=== PATIENT | male | born 1980 | race Caucasian/White ===

== ENCOUNTER 2016-12-13 14:09 | Inpatient (IN) | payer SELFPAY ==
[~2016-12-13] VITALS: Ht 182.9 cm; Wt 67.1 kg
[~2016-12-13 14:09] MED LIST: PROM12.56
[2016-12-13 20:00] VITALS: BP 102/55
[2016-12-13 23:00] VITALS: BP 105/58
[2016-12-13] MEDS ORDERED: ONDANSETRON PF 4 MG/2 ML VIAL. IV PRN (23:00)
[2016-12-13] MEDS ORDERED: KETOROLAC TROMETHAMINE 30 MG/ML INJ. IV PRN (23:00)
[2016-12-13] MEDS ORDERED: fentaNYL PF VIAL 100 MCG/2 ML VIAL IV PRN (23:00)
[2016-12-13] MEDS ORDERED: diphenhydrAMINE 50 MG/ML VIAL IVP PRN (23:00)
[2016-12-14 04:33] LABS: BASO # 0.1 x10^3/uL (0.0-0.2); BASO % 1 % (0-3); EOS % 1 % (0-3); HEMATOCRIT 38.5 % (39.0-53.0); HEMOGLOBIN 13.5 g/dL (13.0-17.5); LYMPH # 2.6 x10^3/uL (1.0-4.8); LYMPH % 27 % (24-48); MEAN CORPUSCULAR HEMOGLOBIN 32 pg (25-35); MEAN CORPUSCULAR HGB CONC 35 g/dL (31-37); MEAN CORPUSCULAR VOLUME 91 fL (79-100); MONO % 8 % (0-9); NEUT % 64 % (31-73); PLATELET COUNT 176 x10^3/uL (140-400); RED BLOOD COUNT 4.24 x10^6/uL (4.30-5.70); WHITE BLOOD COUNT 9.8 x10^3/uL (4.0-11.0)
[2016-12-14 05:34] LABS: ALBUMIN 3.5 g/dL (3.4-5.0); ALBUMIN/GLOBULIN RATIO 1.5 (1.0-1.7); CALCIUM 8.6 mg/dL (8.5-10.1); CREATININE 0.9 mg/dL (0.7-1.3); GFR 94.4; TOTAL BILIRUBIN 0.8 mg/dL (0.2-1.0); TOTAL PROTEIN 5.9 g/dL (6.4-8.2)
[2016-12-14 05:51] LABS: POTASSIUM 2.8 mmol/L (3.5-5.1)
[2016-12-14] MEDS: METRONIDAZOLE 500mg PREMIX 100 ML IV SCH ×2 (06:35→20:20)
[2016-12-14] MEDS: POTASSIUM CL 40MEQ D5-0.45NACL 1,000 ML IV SCH ×2 (06:46→16:30)
[2016-12-14] MEDS: POTASSIUM CHLORIDE 10MEQ 100 ML IV SCH ×4 (06:47→16:21)
[2016-12-14 07:00] VITALS: BP 128/78
[2016-12-14] MEDS ORDERED: MULTIVIT INFUSN,ADULT 4,VIT K 10 ML, FOLIC ACID 1 MG, THIAMINE 100 MG in IV NORMAL SALI... IV SCH (09:00)
[2016-12-14] MEDS: PANTOPRAZOLE IV PUSH 40 MG VIAL. IVP SCH (09:35)
--- NOTE | 2016-12-14 09:48 | PDOC2 ---
GI CONSULT Reason For Consult: N/v, colitis HPI: HPI: 36 y/o male previously evaluated by Dr. Blackwell in 12/2015 for n/v w/ daily marijuana use. At that time, long trial of PPI QD and avoidance of marijuana for ~6 months was advised w/ consideration for intracranial imaging and GES. ( Also discussed L-carnitine + CoQ10 + Elavil.) Has not followed any recommendations. On this occasion, transferred from [facility] w/ n/v, abd pain, runny stools, and "colitis" (CT w/ IV contrast reports suggests possibility of mild colon wall thickening), says other doctors are requesting colonoscopy. Since we saw him, symptoms have recurred about every 2 months w/o precipitating events. Reports another CT at [facility] in 09/2016 also showed "colitis." Has had EGD ( also at [place] in 09/2016), results unclear, says a biopsy was taken. Current episode began last w/ a slight change in bowel habits "like pooping through a straw" and diffuse abd pain. N/v began on Monday. Currently is still vomiting (randomly, awoke at 5:00 a.m. w/ emesis) and having runny stools (says has had 4 since arrived at [facility]). Pain improved. Labs w/ hypokalemia. Denies bleeding, weight loss, reflux/heartburn. On IV PPI, metronidazole, and Rocephin. PMH: PMH: chronic n/v, Lyme disease FH: Family History: No pertinent hx Social History: Smoke: No ALCOHOL: none Drugs: Marijuana (daily >20 years) ROS: GEN: Denies fevers, chills, sweats HEENT: Denies blurred vision, sore throat CV: Denies chest pain RESP: Denies shortness of air, cough GI: Per HPI : Denies hematuria, dysuria ENDO: Denies weight changes NEURO: Denies confusion, dizziness MSK: Denies weakness, joint pain/swelling SKIN: Denies jaundice, pruritus VItals: Vitals: Vital Signs Date Time Temp Pulse Resp B/P Pulse Ox O2 Delivery O2 Flow Rate FiO2 12/14/16 07:00 98.6 74 20 128/78 99 Room Air 98.6 Labs: Labs: Laboratory Tests Test 12/14/16 03:55 White Blood Count 9.8x10^3/uL (4.0-11.0) Red Blood Count 4.24x10^6/uL (4.30-5.70) Hemoglobin 13.5g/dL (13.0-17.5) Hematocrit 38.5% (39.0-53.0) Mean Corpuscular Volume 91fL (79-100) Mean Corpuscular Hemoglobin 32pg (25-35) Mean Corpuscular Hemoglobin Concent 35g/dL (31-37) Red Cell Distribution Width 13.0% (11.5-14.5) Platelet Count 176x10^3/uL (140-400) Neutrophils (%) (Auto) 64% (31-73) Lymphocytes (%) (Auto) 27% (24-48) Monocytes (%) (Auto) 8% (0-9) Eosinophils (%) (Auto) 1% (0-3) Basophils (%) (Auto) 1% (0-3) Neutrophils # (Auto) 6.3x10^3uL (1.8-7.7) Lymphocytes # (Auto) 2.6x10^3/uL (1.0-4.8) Monocytes # (Auto) 0.7x10^3/uL (0.0-1.1) Eosinophils # (Auto) 0.1x10^3/uL (0.0-0.7) Basophils # (Auto) 0.1x10^3/uL (0.0-0.2) Sodium Level 142mmol/L (136-145) Potassium Level 2.8mmol/L (3.5-5.1) Chloride Level 104mmol/L (98-107) Carbon Dioxide Level 29mmol/L (21-32) Anion Gap 9 (6-14) Blood Urea Nitrogen 6mg/dL (8-26) Creatinine 0.9mg/dL (0.7-1.3) Estimated GFR (Cockcroft-Gault) 94.4 BUN/Creatinine Ratio 7 (6-20) Glucose Level 90mg/dL (70-99) Calcium Level 8.6mg/dL (8.5-10.1) Total Bilirubin 0.8mg/dL (0.2-1.0) Aspartate Amino Transf (AST/SGOT) 20U/L (15-37) Alanine Aminotransferase (ALT/SGPT) 18U/L (16-63) Alkaline Phosphatase 50U/L (46-116) Total Protein 5.9g/dL (6.4-8.2) Albumin 3.5g/dL (3.4-5.0) Albumin/Globulin Ratio 1.5 (1.0-1.7) Allergies: Coded Allergies: No Known Drug Allergies (Unverified , 01/01/16) Medications: Current Medications Medications (Trade) Dose Ordered Sig/Jagjit Route PRN Reason Start Time Stop Time Status Last Admin Dose Admin Ceftriaxone Sodium 1 gm/ Sodium Chloride 50 ml @ 100 mls/hr Q24H IV 12/13/16 23:00 12/14/16 00:13 Metronidazole (FLAGYL 500Mmg PREMIX) 100 ml @ 100 mls/hr Q8HRS IV 12/14/16 06:00 12/14/16 06:35 Ondansetron HCl 4 mg 4 mg PRN Q6HRS PRN IV NAUSEA/VOMITING 12/13/16 23:00 12/14/16 05:14 Potassium Chloride/Dextrose/ Sod Cl 1,000 ml @ 100 mls/hr Q10H IV 12/14/16 06:30 12/14/16 06:46 Potassium Chloride (KCl Premix 10meq) 100 ml @ 100 mls/hr Q1H IV 12/14/16 06:30 12/14/16 10:29 12/14/16 08:10 Imaging: Imaging: Reviewed CT report from [facility]. PE: GEN: NAD HEENT: Atraumatic, PERRL LUNGS: CTAB HEART: RRR ABD: NABS, S/ND/NT EXTREMITY: No edema SKIN: No rashes, no jaundice NEURO/PSYCH: A & O 3 A/P: A/P: Recurrent n/v w/ marijuana use ->5 year history, occurring more frequently, no precipitating events -reports recent EGD, unclear results Abd pain - resolved Loose stools w/ ?abnormal CT A/P -reports suggests possible "mild colon wall thickening" -no previous colonoscopy, requesting this now -- Tox screen ordered. ?need for atbx/inpt colonoscopy - will review CT w/ Dr. Blackwell Agree w/ PPI. ?cannabis hyperemesis ?gastroparesis Other per Dr. Blackwell. ANALILIA JUAREZ Dec 14, 2016 09:48
--- NOTE | 2016-12-14 10:46 | ACF ---
Admit Criteria Forms Admit Criteria Forms Admit Criteria Forms VOMITING Clinical Indications for Admission to Inpatient Care ( Place 'X' for any and all applicable criteria): Admission is indicated for 1 or more of the following(1)(2)(3): [ ]I. Complete or partial gastrointestinal obstruction [ ]II. Vomiting due to significant metabolic derangement (eg, severe hypercalcemia, diabetic ketoacidosis) [ ]III. Other cause of vomiting requiring hospitalization (eg, poisoning, increased intracranial pressure) [ ]IV. Inpatient admission required rather than observation care because of 1 or more of the following [ ]i) Hemodynamic instability [ ]ii) Vomiting that is severe or persistent indicated by 1 or more of the following 1) Numerous episodes of vomiting in past 24hours (eg, every 1 to 2 hours) 2) Suggests severe underlying cause or complication (eg , projectile, feculent, bilious, coffee ground, bloody) 3) Appropriate antiemetic treatment (eg, repeated oral or parenteral dosing) does not sufficiently reduce vomiting within 12 to 24 hours of treatment 4) Treatment regimen necessary to adequately control vomiting requires inpatient level of care (eg, not immediately available in outpatient setting) [ ]iii) Severe electrolyte abnormalities requiring inpatient care [ ]iv) Severe pain requiring acute inpatient management( Continuous or frequent (eg, every 2 to 4 hours) parental analgesics or analgesic regimen that can only be performed or initiated in inpatient setting) [ ]v) High fever or infection requiring inpatient admission as indicated by 1 or more of the following(7)(8): [ ]1) Appropriate outpatient or observation care antimicrobial treatment unavailable, not effective, or not feasible [ ]2) Documented bacteremia [ ]3) Temp >104.9 degrees F (40.5 degrees C) (oral) [ ]4) Temp >103.1 degrees F (39.5 C) (oral) or <96.8 degrees F (36 C) (rectal) that does not respond to all emergency treatment measures [ ]vi) Acute renal failure [ ]vii) IV fluid required rather than oral rehydration to replace significant on going losses (greater than 3 L/m2 per day) [ ]viii) Parenteral nutrition regimen that must be implemented on inpatient basis [ ]ix) Other condition, treatment or monitoring requiring inpatient admission Extended stay beyond goal length of stay may be needed for(1)(4): [ ]a) Severe vomiting [ ]b) Persistent vomiting, vital sign changes, severe electrolyte imbalance , or diagnosed cause of vomiting that requires continued hospitalization (eg, gastrointestinal obstruction , increased intracranial pressure) [ ]c) Surgery to treat identified causes of vomiting (eg, bowel obstruction , intracranial process) [ ]d) Comorbid illness that requires inpatient care (eg, acute heart failure , renal failure) [ ]e) Need for inpatient endoscopy The original [employer] content created by [employer] has been revised. The portions of the content which have been revised are identified through the use of italic text or in bold, and [employer] [employer] has neither reviewed nor approved the modified material. All other unmodified content is copyright [employer]. Please see references footnoted in the original [employer] edition 2016 JOVANNA CHAN Dec 14, 2016 10:46
[2016-12-14 11:00] VITALS: BP 131/85
[2016-12-14 12:00] LABS: BARBITURATES NEG (NEG); BENZODIAZEPINES NEG (NEG); CANNABINOIDS POS (NEG); COCAINE NEG (NEG); METHADONE NEG (NEG); OPIATES NEG (NEG); PHENCYCLIDINE NEG (NEG)
--- NOTE | 2016-12-14 12:15 | HP ---
ADMIT DATE: 12/14/2016 HISTORY OF PRESENT ILLNESS: The patient is a 36-year-old male patient who was admitted originally to [facility], and was transferred yesterday as he continued to have recurrent bouts of nausea, vomiting and also diarrhea and the CT scan suggested he might have colitis. He has multiple admissions for the same complaints to [facility], [facility] as well as [facility]. PAST MEDICAL HISTORY: Significant for cyclic vomiting. PAST SURGICAL HISTORY: Unremarkable. FAMILY HISTORY: Unremarkable and not related to his complaints. SOCIAL HISTORY: He is single. He apparently does not smoke or drink alcohol; however, he uses marijuana for the last 20 years. MEDICATIONS: He was transferred to this hospital to continue on diphenhydramine 50 mg IV every 6 hours, fentanyl citrate 50 mcg IV every 3-4 hour, Toradol 30 mg IV as needed for 6 hours, Flagyl 500 mg IV q. 8 hourly, and Protonix 40 mg twice a day as well as potassium chloride. PHYSICAL EXAMINATION: GENERAL: On examining him, he actually looked well and was clearly in no apparent respiratory distress. No pallor, jaundice, cyanosis, or thyromegaly. No jugular venous distention. No limb edema. VITAL SIGNS: His heart rate was 74, blood pressure was 128/78, temperature was 98.6, respiratory rate was 20, and oxygen saturation was 99%. HEAD, EYES, EARS, NOSE, AND THROAT: Showed normocephalic, atraumatic. NECK: Supple. HEART: Showed normal first and second heart sounds with no gallop, rub, or murmur. CHEST: Clear to auscultation. No crepitation or rhonchi. ABDOMEN: Distended, soft, nontender. No guarding or rigidity. No organomegaly. All hernial orifices intact. Bowel sounds normal. NEUROLOGIC: He is awake, alert, responding appropriately. Cranial nerves are intact. EXTREMITIES: He moves extremities without difficulty, ambulates without assistance or assistive devices. LABORATORY DATA: His lab work this morning showed a white cell count 9,800, hemoglobin 13.5, hematocrit 38.5, MCV 91, and platelet count of 176,000. Serum sodium was 142, potassium 2.8, chloride 104, bicarbonate 29, anion gap of 9, BUN 6, creatinine 0.9, estimated GFR was 94 mL per minute. His glucose was 90, calcium was 8.6. Total bilirubin, AST, ALT, alkaline phosphatase were normal. Total protein was 5.9, albumin 3.5. ASSESSMENT: A 36-year-old male patient with recurrent bouts of nausea, vomiting, questionable colitis on CT scan done at the [facility]. While at [facility], he only one bowel movement everyday, although he stated that he has 4 bowel movements so far this morning. He apparently has been eating and drinking and stated that he is craving melons and grapes. Apparently, he was seen before by Dr. Blackwell and recommended stopping marijuana for at least 6 months and advised to arrange for intracranial imaging and gastric-emptying study. He also had discussed starting him on L-carnitine and followed any of these recommendations and obviously has hypokalemia with a potassium of 2.8, that will be replaced by electrolyte replacement protocol and did start him on D5 half normal with 40 mEq of potassium chloride and will repeat his lab work this afternoon. SUSAN PARKS MD DR: INDRA/jacy JOB#: [id number] / [id number]
[2016-12-14 15:00] VITALS: BP 122/79
[2016-12-14 19:00] VITALS: BP 113/63
[2016-12-14 23:00] VITALS: BP 137/76
[2016-12-15] MEDS: METRONIDAZOLE 500mg PREMIX 100 ML IV SCH ×2 (01:28→06:23)
[2016-12-15 04:23] LABS: CALCIUM 8.5 mg/dL (8.5-10.1); CREATININE 0.8 mg/dL (0.7-1.3); GFR 108.2; POTASSIUM 3.9 mmol/L (3.5-5.1)
[2016-12-15] MEDS: PANTOPRAZOLE IV PUSH 40 MG VIAL. IVP SCH (07:30)
--- NOTE | 2016-12-15 10:44 | RAD ---
Gastric emptying study History: Nausea and vomiting for 9 years, weight loss. Procedure: Serial static anterior planar images are obtained over the stomach for one hour following oral administration of 2.1 mCi of 99 M technetium sulfur colloid in a solid meal. Findings: The stomach empties normally into the small bowel without evidence of reflux in the area the esophagus. The gastric emptying half time is 79 minutes (normal is 66 +/- 22 minutes). Impression: Normal gastric emptying study.
[2016-12-15 10:54] VITALS: BP 114/72
--- NOTE | 2016-12-15 19:20 | DS ---
DATE OF DISCHARGE: 12/15/2016 HOSPITAL COURSE: The patient is a 36-year-old male patient who was transferred to [facility] after the initial evaluation at [facility] with recurrent bouts of nausea and vomiting. He apparently is known to Dr. Blackwell who saw him on 12/2015 with nausea, vomiting, daily marijuana use. At that time, he was advised to quit smoking marijuana and a trial of proton pump inhibitor as well as gastric emptying study and a trial of L-Carnitine, CoQ10 and Elavil. However, the patient did not follow following of these recommendations. On admission to [facility], he had a CT scan which showed a possible colitis although Dr. Blackwell did not really believe that that is the case and initially the patient was extremely hypokalemic with a potassium of only 2.8 that was replenished. Yesterday, he was advised to advance his diet and tolerated that very well. He has had a gastric emptying study, which showed the stomach empties normally into the small bowel without evidence of reflux in the area of the esophagus. The gastric emptying half time is 79 minutes with normal range of 66+/-22 minutes. The Gastroenterology did not feel that the patient need any colonoscopy and the patient remained hemodynamically stable, afebrile. All his lab works were within normal limit and therefore a decision was made to discharge him home. PHYSICAL EXAMINATION: GENERAL: When I saw him this morning, he was sitting on the edge of the bed comfortably in no apparent respiratory distress. He was pale. No jaundice, cyanosis or thyromegaly. No jugular venous distention. No limb edema. VITAL SIGNS: His heart rate was 89, blood pressure 114/72, temperature was 98, respiratory rate was 18 and oxygen saturation was 100%. HEAD, EYES, EARS, NOSE AND THROAT: Showed normocephalic, atraumatic. NECK: Supple. HEART: Showed normal first and second heart sounds with no gallop, rub or murmur. CHEST: Clear to auscultation. No crepitation or rhonchi. ABDOMEN: Distended, soft, nontender. NEUROLOGIC: He is awake, alert, responding appropriately. Cranial nerves intact. He moves extremities without difficulty, ambulates without assistance or assistive devices. His intake was 1200, output was 800. LABORATORY DATA: This morning showed a serum sodium 140, potassium 3.9, chloride 105, bicarbonate 30, anion gap of 5, BUN 7, creatinine 0.8, estimated GFR was 118 mL per minute. His glucose was 94, calcium was 8.5. His white cell count was 9800, hemoglobin 13.5, hematocrit 38.5, MCV 91, and platelet count of 176,000. FINAL DISCHARGE DIAGNOSES: Recurrent nausea, vomiting with marijuana use. There is no evidence of gastroparesis. The gastric emptying study was within normal limits. Hypokalemia. SUSAN PARKS MD DR: INDRA/jacy JOB#: [id number] / [id number]
== END 2016-12-15 13:00 | disposition home or self-care (01) | DRG 918 ==
LOC: 5 SOUTH 20:02
PROVIDERS: ADMIT Internal Medicine; ATTEND Internal Medicine
DX: T40.7X1A Poisoning by cannabis (derivatives), accidental (unintentional), initial encounter (principal); K52.9 Noninfective gastroenteritis and colitis, unspecified; E87.6 Hypokalemia; F12.90 Cannabis use, unspecified, uncomplicated; Z79.899 Other long term (current) drug therapy; Y92.89 Other specified places as the place of occurrence of the external cause; R11.2 Nausea with vomiting, unspecified
CPT/HCPCS: 36415; 78264; 80048; 80053; 85027; 87045; 87324; A9541; C9113; G0481; J0696; J2405; J3480; J3490; J7030; J7042